=== PATIENT | male | born 2005 | race Caucasian/White ===

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

== ENCOUNTER 2024-02-03 11:02 | Emergency (ER) | payer OTHER ==
[~2024-02-03] VITALS: Ht 180.3 cm; Wt 127.0 kg
[2024-02-03] MEDS ORDERED: Ketorolac Tromethamine 30 MG/ML VIAL IM ONE (11:25)
== END 2024-02-03 13:10 | disposition home or self-care (01) ==
LOC: ED 11:02
DX: S96.912A Strain of unspecified muscle and tendon at ankle and foot level, left foot, initial encounter (principal); Z79.2 Long term (current) use of antibiotics; X50.1XXA Overexertion from prolonged static or awkward postures, initial encounter; Y93.89 Activity, other specified; Y92.89 Other specified places as the place of occurrence of the external cause; Y99.8 Other external cause status

== ENCOUNTER 2024-11-04 22:19 | Emergency (ER) | payer OTHER ==
[~2024-11-04] VITALS: Ht 180.3 cm; Wt 127.0 kg
[2024-11-04] MEDS ORDERED: methylPREDNISolone sod succ 125 MG VIAL IM ONE (22:30)
[2024-11-04] MEDS ORDERED: ZYRTEC10 M2 PO (22:31)
[2024-11-04] MEDS ORDERED: PREDNISONE20 M1 PO (22:31)
== END 2024-11-04 23:28 | disposition home or self-care (01) ==
LOC: ED 22:19
DX: R21 Rash and other nonspecific skin eruption (principal); R06.7 Sneezing; Z79.899 Other long term (current) drug therapy